=== PATIENT | female | born 1985 | race Caucasian/White ===

== ENCOUNTER → 2021-04-25 | Outpatient (CLI) | payer OTHER ==
[2021-04-29 14:10] LABS: HPV 16 Negative (Negative); HPV 18 Negative (Negative); HPV OTHER HR TYPES Negative (Negative)
== END ==
LOC: LAB SHORT 18:32
PROVIDERS: Family Medicine
DX: Z01.419 Encounter for gynecological examination (general) (routine) without abnormal findings (principal)
CPT/HCPCS: 87624; G0145

== ENCOUNTER → 2021-08-15 | Outpatient (CLI) | payer OTHER ==
[~2021-08-15] MED LIST: CYCL10 PO; HYDR1TAB94 PO
== END | disposition home or self-care (01) ==
LOC: LAB 12:25 → LAB SHORT 12:25
DX: Z34.00 Encounter for supervision of normal first pregnancy, unspecified trimester (principal); Z33.1 Pregnant state, incidental
CPT/HCPCS: 87086

== ENCOUNTER → 2021-09-04 | Outpatient (CLI) | payer OTHER ==
[2021-09-04 13:18] LABS: Source, Urine Clean Catch
[2021-09-04 15:17] LABS: U Amphetamine Screen Not Detected; U Barbituate Screen Not Detected; U Benzodiazapine Screen Not Detected; U Buprenorphine Screen Not Detected; U Cannabinoids Screen Not Detected; U Cocaine Screen Not Detected; U Methadone Screen Not Detected; U Methamphetamine Screen Not Detected; U Opiates Screen Not Detected; U Oxycodone Screen Not Detected; U Phencyclidine Screen Not Detected; U Propoxyphene Screen Not Detected
[2021-09-04 15:37] LABS: Bacteria Mod /hpf; Squamous Epithelial Cells Many /hpf (Few)
== END | disposition home or self-care (01) ==
LOC: LAB SHORT 10:03
PROVIDERS: Obstetrics & Gynecology
DX: Z34.01 Encounter for supervision of normal first pregnancy, first trimester (principal)
CPT/HCPCS: 81015; 87086

== ENCOUNTER 2025-02-09 09:56 | Day surgery (SDC) | payer OTHER ==
[2025-02-09] VITALS (8 sets, daily range): BP systolic 102–121; BP diastolic 56–71
[~2025-02-09] VITALS: Ht 170.2 cm; Wt 88.8 kg
[2025-02-09] MEDS ORDERED: AMPDEX5 PO (10:09)
--- NOTE | 2025-02-09 10:27 | NUR ---
Ambulatory in Day Surgery. History, Chart, Medications and Allergies reviewed before start of procedure. Lungs clear T/O to Auscultation. Patient confirms NPO status and agrees with scheduled surgery. Pre-Op teaching done. Pt verbalizes understanding. Patient States Post-Procedure ride home has been arranged.
[2025-02-09] MEDS ORDERED: FentaNYL Citrate 50 MCG/ML 2 ML Injection ONE (10:34)
[2025-02-09] MEDS ORDERED: FentaNYL Citrate 50 MCG/ML 2 ML Injection IV PRN ×2 (10:45)
[2025-02-09] MEDS ORDERED: HYDROmorphone HCl/Pf 1MG SYR IV PRN (10:45)
[2025-02-09] MEDS ORDERED: Ondansetron HCl 2 MG / ML 2ML Vial IV PRN (10:45)
[2025-02-09] MEDS ORDERED: Prochlorperazine Edisylate 10 mg Vial IV PRN (10:50)
[2025-02-09] MEDS ORDERED: Dexamethasone Sod Phos 10 MG/ML 1ML VIAL ONE (11:13)
[2025-02-09] MEDS ORDERED: Ondansetron HCl 2 MG / ML 2ML Vial ONE (11:13)
[2025-02-09] MEDS ORDERED: Ketorolac Tromethamine 30mg Vial ONE (11:13)
--- NOTE | 2025-02-09 12:10 | NUR ---
PT TO DAY SURGERY STEP DOWN FROM PACU FOR D&C. PT IS AWAKE, ALERT AND ORIENTED; ABLE TO MOVE SELF IN BED. PT DENIES PAIN. HAS CLEAN ZEFERINO PAD IN PLACE.
--- NOTE | 2025-02-09 12:47 | NUR ---
PT DECLINES PO FLUIDS AND SNACK. LAB AT BEDSIDE
--- NOTE | 2025-02-09 12:55 | NUR ---
Patient up to Ambulate independently. Gait steady. Up to bathroom, pt was able to void and is ready to dc to home.
--- NOTE | 2025-02-09 13:00 | NUR ---
Discharge instructions reviewed with patient. Patient verbalizes understanding. Copy given to patient to take home.
--- NOTE | 2025-02-09 13:05 | NUR ---
Discharged via wheelchair to private car for ride home.
== END 2025-02-09 13:12 | disposition home or self-care (01) ==
LOC: ORSCMMR 09:56 → ORD 11:15 → ORSCMMR 13:12
PROVIDERS: Obstetrics & Gynecology
PROC: 10D17ZZ Extraction of Products of Conception, Retained, Via Natural or Artificial Opening (ICD-10-PCS; principal; 2025-02-09 11:15)
DX: O02.1 Missed abortion (principal); N84.1 Polyp of cervix uteri; F90.9 Attention-deficit hyperactivity disorder, unspecified type; F43.10 Post-traumatic stress disorder, unspecified; F17.210 Nicotine dependence, cigarettes, uncomplicated; Z79.899 Other long term (current) drug therapy
CPT/HCPCS: 76998; 86850; 86900; 86901; 88305; J1100; J1885; J2405; J2704; J3010; J7120